=== PATIENT | female | born 1995 | race Two or more races ===

== ENCOUNTER 2022-02-15 00:50 | Observation (INO) | payer SELFPAY ==
[~2022-02-15] VITALS: Ht 157.5 cm; Wt 77.6 kg
[2022-02-15] MEDS ORDERED: TERBUTALINE SULFATE 1 MG/ML 1ML VIAL SC SCH (01:30)
== END 2022-02-15 03:15 | disposition home or self-care (01) ==
LOC: LDRP 00:50
PROVIDERS: ADMIT Obstetrics & Gynecology; ATTEND Obstetrics & Gynecology
DX: O62.9 Abnormality of forces of labor, unspecified (principal); Z3A.37 37 weeks gestation of pregnancy
CPT/HCPCS: 59025; 81002; 94760; 96372; G0378; J3105